=== PATIENT | male | born 1990 | race Hispanic/Latino ===

== ENCOUNTER → 2018-08-03 | Day surgery (SDC) | payer OTHER ==
[2018-07-28 10:29] LABS: BASOPHILS # (AUTO) 0.1 (0.0-0.1); BASOPHILS % 0.8 % (0.0-1.0); EOSINOPHILS # (AUTO) 0.1 (0.0-0.4); EOSINOPHILS % 0.8 % (0.0-6.0); HEMATOCRIT 47.7 % (38.2-49.6); HEMOGLOBIN 16.2 g/dL (14.0-18.0); LYMPHOCYTES # (AUTO) 1.7 (1.0-3.2); LYMPHOCYTES % 26.9 % (18.0-39.1); MEAN CORPUSCULAR HEMOGLOBIN 29.7 pg (28-32); MEAN CORPUSCULAR VOLUME 87.4 fL (81-99); MONOCYTES # (AUTO) 0.6 (0.2-0.8); MONOCYTES % 8.9 % (4.4-11.3); PLATELET COUNT 190 x10e3/uL (140-360); RED BLOOD COUNT 5.46 x10e6/uL (4.3-5.7); RED CELL DISTRIBUTION WIDTH 13.1 % (11.7-14.4)
[~2018-08-03] MED LIST: ACETAMINOPHEN 1000 MG/100 ML IV ONE; BUPIVACAINE 0.25%/EPI 30ML SDV INJ ONE; CEFAZOLIN SOD 1 GM VIAL ONE; DESFLURANE 240 ML BTL INH ONE; DEXAMETHASONE SOD PHOS INJ 4 MG/ML VIAL ONE; FENTANYL CITRATE/PF 100MCG/2 ML INJ ONE; GLYCOPYRROLATE INJ 1MG/ 5 ML SYR ONE; HYDROCODONE/APAP 7.5MG-325MG 1 EA TAB ONE; KETOROLAC TROMETHAMINE 30 MG/ML VIAL ONE; LIDOCAINE HCL 2% LOCAL INJ 5 ML SDV VIAL INJ ONE; MIDAZOLAM HCL 2 MG/2 ML VIAL ONE; NEOSTIGMINE 5 MG/5ML SYR ONE; ONDANSETRON HCL INJ 2MG/ML 2ML 2 MG/ML VIAL ONE; PROPOFOL IV EMULSION 10 MG/ML 20 ML VIAL ONE; ROCURONIUM BROMIDE 10 MG/ML 5ML VIAL ONE
[2018-08-03 12:00] VITALS: BP 110/60
--- NOTE | 2018-08-03 16:53 | Operative Report ---
DATE OF PROCEDURE: 08/03/2018 SURGEON: Daniel Manuel MD PREOPERATIVE DIAGNOSES: Complex pilonidal cyst and sinuses. POSTOPERATIVE DIAGNOSES: Complex pilonidal cyst and sinuses. OPERATION PERFORMED: Wide excision of complex pilonidal cyst with rotational gluteal flap closure. REGISTERED NURSE POST PARTUM: MADI Aragon. ANESTHESIA: General. COMPLICATIONS: None. ESTIMATED BLOOD LOSS: Minimal. DESCRIPTION OF PROCEDURE: With the patient lying in bed in the prone position under good general endotracheal anesthesia, the perineum and back were prepped with Betadine solution and draped in the usual manner. The patient had several midline sinuses from the pilonidal and there was one fistulous tract that extended into the left buttocks area. An elliptical incision was then made, curved around to the left buttocks to include the cyst with all the sinuses. Incision was deepened through the subcutaneous tissue all the way down to the gluteal fascia and the midline fascia and the cyst and all the sinuses were completely removed in their entirety without violating any of the borders. After this was done, gluteal flaps were then developed by lifting up the gluteal fascia on both sides all the way around, quite a bit of undermining that had to be done in order to be able to reapproximate the large defect. After this was done, the fascia was then reapproximated at the midline with interrupted sutures of 2-0 Vicryl, the subcutaneous tissue was approximated with 2-0 Vicryl and the skin was closed with interrupted vertical mattress sutures of 2-0 and 3-0 silk. All layers were infiltrated on the way out with solution of 0.25% Marcaine. Dressings were applied. The sponge, lap, and needle count were correct. The patient tolerated the procedure well and returned to the recovery room in stable condition. Daniel Manuel MD JLR/MODL /[id number]
== END | disposition home or self-care (01) ==
LOC: OR 05:43
PROVIDERS: ATTEND Surgery
DX: L05.91 Pilonidal cyst without abscess (principal); Z01.812 Encounter for preprocedural laboratory examination; Z87.891 Personal history of nicotine dependence
CPT/HCPCS: 11772; 36415; 85025; 88304; J0131; J0690; J1100; J1885; J2001; J2250; J2405; J2704; J3490